=== PATIENT | female | born 1945 | race Caucasian/White ===

== ENCOUNTER → 2024-09-16 09:41 | Outpatient (REF) | payer OTHER, SELFPAY | LOC: HWRAD 09:41 | PROVIDERS: ATTENDING PHYSICIAN Internal Medicine Gastroenterology; FAMILY PHYSICIAN Internal Medicine Geriatric Medicine; REFERRING PHYSICIAN Internal Medicine | DX: K74.60 Unspecified cirrhosis of liver (principal) | CPT/HCPCS: 76700 ==

== ENCOUNTER 2025-01-17 06:17 | Day surgery (SDC) | payer OTHER, SELFPAY | END 2025-01-17 13:54 | disposition home or self-care (01) | LOC: GI 06:17 | PROVIDERS: ATTENDING PHYSICIAN Internal Medicine Gastroenterology | DX: R12 Heartburn (principal); K74.60 Unspecified cirrhosis of liver; K31.7 Polyp of stomach and duodenum; I85.10 Secondary esophageal varices without bleeding; K31.89 Other diseases of stomach and duodenum | CPT/HCPCS: 43239; 88305; 88342 ==